=== PATIENT | male | born 1965 | race Caucasian/White ===

== ENCOUNTER → 2020-12-15 | Outpatient (CLI) | payer MEDICARE, OTHER ==
[~2020-12-15] MED LIST: BUSPAR 5MG TABLE5 MG PO; CALCIUM500 MG PO; CHONDROITIN SU250 MG PO; CLARITIN10 M2 PO; GLUCOSAMINE1000 MG PO; ISOSORBIDE MONO30 MG PO; LIPITOR TAB 2020 MG PO; NEURONTIN 300300 MG PO; NORCO 5-325 TA1 EACH PO; NOVOLOG MI100 UNIT/2 SQ; PRILOSEC OTC20 MG PO; TEGRETOL XR400 MG PO; TEGRETOL200 MG PO; TYLENOL 500 MG500 MG PO; VITAMIN D-32000 UNIT PO; VITAMIN D250 MCG PO; VITAMIN D325 MC6 PO; ZANTAC150 MG PO; ZOFRAN4 MG PO
== END ==
LOC: KOH-I 11:23
DX: R10.9 Unspecified abdominal pain (principal); N20.0 Calculus of kidney
CPT/HCPCS: 74176

== ENCOUNTER 2021-08-18 16:58 | Inpatient (IN) | payer MEDICARE, MEDICAID ==
[~2021-08-18] VITALS: Ht 162.6 cm; Wt 64.3 kg
[2021-08-18 17:33] LABS: HEMOGLOBIN 15.2 gm/dl (14.0-17.5); RED BLOOD COUNT 4.81 M/UL (4.20-5.50); WHITE BLOOD COUNT 8.6 K/UL (4.5-11.0)
[2021-08-18 18:02] LABS: BUN/CREATININE RATIO 21 (0-10)
[2021-08-18] MEDS ORDERED: MILK THISTLE175 M2 PO (19:40)
[2021-08-18] MEDS ORDERED: ALPHA LIPOIC A200 M1 PO (19:41)
[2021-08-18] MEDS ORDERED: CRANBERRY450 M2 PO (19:43)
--- NOTE | 2021-08-19 00:02 | NUR ---
ACT RESULT 133. 6FR SHEATH PULLED BY GINGER Daniels . MANUAL PRESSURE WAS HELD FOR 20 MINUTES. PROCEDURE WAS TOLERATED WITHOUT COMPLICATIONS . D-STAT WAS APPLIED TO PUNCTURE SITE AND SECURED WITH D-STAT PROVIDED DRESSING. FINAL BLOOD PRESSURE AFTER 20 MINUTE HOLD : 101/57 (68) M.A.P ,HR 87 , RR 14 , SP02 97% ON ROOM AIR.
--- NOTE | 2021-08-19 03:52 | NUR ---
C/O FEELING LIKE HIS BLOOD "SUGAR WAS HIGH" ACCU CHECK RESULT OF 94 OBTAINED. REQUEST NOTHING TO EAT AT THIS TIME. REQUESTING WATER. WILL CONTINUE TO MONITOR.
--- NOTE | 2021-08-19 04:22 | NUR ---
C/O HANDS SWELLING . NO VISABLE SWELLING NOTED. WILL CONTINUE TO MONITOR
[2021-08-19 04:40] LABS: HEMOGLOBIN 14.4 gm/dl (14.0-17.5); RED BLOOD COUNT 4.68 M/UL (4.20-5.50); WHITE BLOOD COUNT 8.5 K/UL (4.5-11.0)
[2021-08-19 05:03] LABS: BUN/CREATININE RATIO 21 (0-10)
[2021-08-20 05:41] LABS: HEMOGLOBIN 14.4 gm/dl (14.0-17.5); RED BLOOD COUNT 4.59 M/UL (4.20-5.50)
[2021-08-20 06:17] LABS: BUN/CREATININE RATIO 16 (0-10)
[2021-08-21 03:35] LABS: BUN/CREATININE RATIO 20 (0-10)
[2021-08-21] MEDS ORDERED: ATORVASTATIN CA40 MG PO (11:16)
[2021-08-21] MEDS ORDERED: METOPROLOL SUCC25 MG PO (11:16)
[2021-08-21] MEDS ORDERED: ASPIRIN EC81 MG PO (11:16)
[2021-08-21] MEDS ORDERED: BRILINTA 90 MG90 MG PO (11:16)
[2021-08-21] MEDS ORDERED: NITROGLYCERIN0.4 MG SL (11:16)
== END 2021-08-21 12:51 | disposition home or self-care (01) | DRG 247 ==
LOC: ER1 16:58 → CDU 17:59 → CCU 17:59 → PROG CARE 08-20 17:13
PROVIDERS: Internal Medicine; Preventive Medicine Occupational Medicine; ADMIT Internal Medicine Interventional Cardiology
PROC: 4A023N7 Measurement of Cardiac Sampling and Pressure, Left Heart, Percutaneous Approach (ICD-10-PCS; principal; 2021-08-18)
PROC: 027034Z Dilation of Coronary Artery, One Artery with Drug-eluting Intraluminal Device, Percutaneous Approach (ICD-10-PCS; 2021-08-18)
PROC: B2111ZZ Fluoroscopy of Multiple Coronary Arteries using Low Osmolar Contrast (ICD-10-PCS; 2021-08-18)
DX: I21.09 ST elevation (STEMI) myocardial infarction involving other coronary artery of anterior wall (principal); F11.20 Opioid dependence, uncomplicated; E87.1 Hypo-osmolality and hyponatremia; N17.9 Acute kidney failure, unspecified; E87.3 Alkalosis; Z20.822 Contact with and (suspected) exposure to COVID-19; I25.10 Atherosclerotic heart disease of native coronary artery without angina pectoris; G89.29 Other chronic pain; E11.9 Type 2 diabetes mellitus without complications; K21.9 Gastro-esophageal reflux disease without esophagitis; R50.9 Fever, unspecified; R74.8 Abnormal levels of other serum enzymes; E87.6 Hypokalemia; I25.5 Ischemic cardiomyopathy; I10 Essential (primary) hypertension; G40.909 Epilepsy, unspecified, not intractable, without status epilepticus; Z90.49 Acquired absence of other specified parts of digestive tract; Z90.89 Acquired absence of other organs; Z98.890 Other specified postprocedural states; Z82.49 Family history of ischemic heart disease and other diseases of the circulatory system; Z79.82 Long term (current) use of aspirin; Z95.1 Presence of aortocoronary bypass graft
CPT/HCPCS: ECHO; 36415; 71045; 80048; 80053; 80307; 81001; 82550; 82553; 82962; 83036; 83874; 83880; 84132; 84484; 84550; 85025; 85027; 85347; 86140; 87040; 93005; 93306; 97162; 99152; 99153; 99285; C1725; C1769; C1874; J0461; J1200; J1644; J2250; J2370; J2405; J2550; J3246; J7040; Q9965; U0002

== ENCOUNTER → 2021-12-22 | Outpatient (CLI) | payer MEDICARE ==
[~2021-12-22] MED LIST changes: +ALPHA LIPOIC A200 M1 PO; +ASPIRIN EC81 MG PO; +ATORVASTATIN CA40 MG PO; +BRILINTA 90 MG90 MG PO; +CRANBERRY450 M2 PO; +METOPROLOL SUCC25 MG PO; +MILK THISTLE175 M2 PO; +NITROGLYCERIN0.4 MG SL
== END ==
LOC: HEART 5 10:16
DX: R07.9 Chest pain, unspecified (principal); R00.2 Palpitations; I08.3 Combined rheumatic disorders of mitral, aortic and tricuspid valves
CPT/HCPCS: 93306

== ENCOUNTER → 2022-03-28 | Outpatient (CLI) | payer MEDICARE, OTHER ==
[2022-03-28 15:22] LABS: BUN/CREATININE RATIO 22 (0-10)
[2022-03-30 10:20] LABS: CREATININE, URINE 23.6 mg/dL (Not Estab.); MICROALB/CREAT RATIO <13 (0-29)
== END ==
LOC: CT 03-17 13:00
PROVIDERS: Internal Medicine Nephrology
DX: N20.0 Calculus of kidney (principal)
CPT/HCPCS: 36415; 80053; 81001; 82043; 82570; 84156

== ENCOUNTER → 2022-04-20 | Outpatient (CLI) | payer MEDICARE, OTHER | LOC: US 04-17 14:45 | DX: N20.0 Calculus of kidney (principal) ==

== ENCOUNTER → 2022-06-22 | Outpatient (CLI) | payer MEDICARE, OTHER | LOC: KOH-I 06-14 09:30 | DX: R10.84 Generalized abdominal pain (principal); N20.0 Calculus of kidney | CPT/HCPCS: 74176 ==

== ENCOUNTER → 2022-08-03 | Outpatient (CLI) | payer MEDICARE, OTHER | LOC: EXRD 07-31 08:00 | DX: R07.9 Chest pain, unspecified (principal); R42 Dizziness and giddiness; R00.2 Palpitations; R60.0 Localized edema | CPT/HCPCS: 93971 ==